=== PATIENT | female | born 1940 | race Caucasian/White ===

== ENCOUNTER 2017-02-06 09:27 | Emergency (ER) | payer OTHER, BC ==
[~2017-02-06] VITALS: Ht 152.4 cm; Wt 45.0 kg
[2017-02-06 10:57] LABS: INTER. NORMALIZED RATIO 2.2; PROTHROMBIN TIME 23.4 (9.2-11.2); PTT 34.4 (25-32)
[2017-02-06 12:07] VITALS: BP 119/67
[2017-02-07] MEDS ORDERED: ALPRAZOLAM0.25 M2 PO (01:51)
[2017-02-07] MEDS ORDERED: LISINOPRIL20 MG PO (01:51)
[2017-02-07] MEDS ORDERED: CARTIA XT180 MG PO (01:51)
[2017-02-07] MEDS ORDERED: SYNTHROID75 MCG PO (01:51)
[2017-02-07] MEDS ORDERED: AMIODARONE HCL200 MG PO (01:51)
[2017-02-07] MEDS ORDERED: ERGOCALCIF50000 UNIT PO (01:51)
[2017-02-07] MEDS ORDERED: CLOPIDOGREL75 MG PO (01:52)
[2017-02-07] MEDS ORDERED: CARAFATE1 GM PO (01:52)
[2017-02-07] MEDS ORDERED: WARFARIN SODIUM2 MG PO ×2 (01:52)
[2017-02-07] MEDS ORDERED: SIMVASTATIN20 MG PO (01:52)
[2017-02-07] MEDS ORDERED: ADVIL200 MG PO (01:53)
[2017-02-07] MEDS ORDERED: LO-DOSE ASPIRIN81 M2 PO (01:53)
[2017-02-07] MEDS ORDERED: CENTRUM SILVER1 EAC3 PO (01:53)
== END 2017-02-06 12:15 | disposition home or self-care (01) ==
LOC: EME 09:27
PROC: 0HQ1XZZ Repair Face Skin, External Approach (ICD-10-PCS; principal; 2017-02-06)
DX: S01.112A Laceration without foreign body of left eyelid and periocular area, initial encounter (principal); Z79.01 Long term (current) use of anticoagulants; W18.12XA Fall from or off toilet with subsequent striking against object, initial encounter; I48.91 Unspecified atrial fibrillation; F17.200 Nicotine dependence, unspecified, uncomplicated
CPT/HCPCS: 70450; 85610; 85730; 99281; 99284

== ENCOUNTER 2017-02-06 23:42 | Observation (INO) | payer OTHER, BC ==
[~2017-02-06] VITALS: Ht 152.4 cm; Wt 45.8 kg
[2017-02-07] VITALS (11 sets, daily range): BP systolic 112–187; BP diastolic 57–77
[2017-02-07 01:24] LABS: EOSINOPHIL COUNT 0.1 K/uL (0-0.3); HEMATOCRIT 23.4 % (36.0-46.0); IMMATURE GRANULOCYTE (%) 0.4 % (0.0-0.7); INSTRUMENT ABS NEUTROPHIL CT 7.5 K/uL; LYMPHOCYTE COUNT 1.5 K/uL (1.0-2.8); MCH 19.2 PG (29.0-34.0); MCHC 28.2 G/DL (30.0-36.0); MONOCYTE (%) 8.5 % (3-12); MONOCYTE COUNT 0.9 K/uL (0-0.8); NEUTROPHIL (%) 75.4 % (45-76); NEUTROPHIL COUNT 7.5 K/uL (1.8-6.4); PLATELET COUNT 333 K/uL (156-360); RBC DIS.WIDTH-CV 17.7 % (11.8-14.6); RBC DIS.WIDTH-SD 43.1 % (39-53); RED BLOOD COUNT 3.44 M/uL (3.80-5.20)
[2017-02-07 01:27] LABS: INTER. NORMALIZED RATIO 2.2; PROTHROMBIN TIME 22.5 (9.2-11.2); PTT 30.2 (25-32)
[2017-02-07 01:29] LABS: CHLORIDE 108 mEq/L (99-109); POTASSIUM 3.7 mEq/L (3.7-5.4); SODIUM 139 mEq/L (136-147)
[2017-02-07 01:31] LABS: GLUCOSE 105 mg/dL (70-99)
[2017-02-07 01:32] LABS: ANION GAP 10 MEQ/L (2-14)
[2017-02-07 01:34] LABS: GFR ESTIMATE (CALCULATED) 51 mL/min/
[2017-02-07 01:35] LABS: UREA NITROGEN (BUN) 16 mg/dL (9-23)
[2017-02-07] MEDS ORDERED: ERGOCALCIF50000 UNIT PO (01:51)
[2017-02-07] MEDS ORDERED: LISINOPRIL20 MG PO (01:51)
[2017-02-07] MEDS ORDERED: AMIODARONE HCL200 MG PO (01:51)
[2017-02-07] MEDS ORDERED: CARTIA XT180 MG PO (01:51)
[2017-02-07] MEDS ORDERED: SYNTHROID75 MCG PO (01:51)
[2017-02-07] MEDS ORDERED: ALPRAZOLAM0.25 M2 PO (01:51)
[2017-02-07] MEDS ORDERED: SIMVASTATIN20 MG PO (01:52)
[2017-02-07] MEDS ORDERED: CARAFATE1 GM PO (01:52)
[2017-02-07] MEDS ORDERED: CLOPIDOGREL75 MG PO (01:52)
[2017-02-07] MEDS ORDERED: WARFARIN SODIUM2 MG PO ×2 (01:52)
[2017-02-07] MEDS ORDERED: CENTRUM SILVER1 EAC3 PO (01:53)
[2017-02-07] MEDS ORDERED: LO-DOSE ASPIRIN81 M2 PO (01:53)
[2017-02-07] MEDS ORDERED: ADVIL200 MG PO (01:53)
[2017-02-07 09:03] LABS: HEMATOCRIT 33.6 % (36.0-46.0)
[2017-02-07 09:13] LABS: MCV 72.9 FL (83-99)
[2017-02-07 09:19] LABS: ALKALINE PHOSPHATASE 114 IU/L (3-129); ANION GAP 8 MEQ/L (2-14); CHLORIDE 106 MEQ/L (99-109); GFR ESTIMATE (CALCULATED) 57 mL/min/; GLUCOSE 94 mg/dL (70-99); POTASSIUM 3.8 MEQ/L (3.7-5.4); SAMPLE HEMOLYSIS CHECK 0; SAMPLE ICTERIC CHECK 0; SAMPLE LIPEMIA CHECK 0; SODIUM 139 MEQ/L (136-147); UREA NITROGEN (BUN) 15 mg/dL (9-23)
== END 2017-02-07 11:12 | disposition home or self-care (01) ==
LOC: EME 23:42 → EDOF 02-07 03:04 → 5WEST 02-07 03:55
PROVIDERS: Emergency Medicine; Internal Medicine; Nurse Practitioner Family
DX: D62 Acute posthemorrhagic anemia (principal); S01.112A Laceration without foreign body of left eyelid and periocular area, initial encounter; Z91.81 History of falling; R19.7 Diarrhea, unspecified; I48.2 Chronic atrial fibrillation; Z79.01 Long term (current) use of anticoagulants
CPT/HCPCS: 80048; 80053; 85014; 85018; 85025; 85610; 85730; 86900; 86901; 86920; 99281; 99285; G0378; J1940; P9016

== ENCOUNTER 2017-07-23 20:02 | Inpatient (IN) | payer OTHER, BC ==
[~2017-07-23] VITALS: Ht 149.9 cm; Wt 48.7 kg
[~2017-07-23 20:02] MED LIST: ADVIL200 MG PO; ALPRAZOLAM0.25 M2 PO; AMIODARONE HCL200 MG PO; CARAFATE1 GM PO; CARTIA XT180 MG PO; CENTRUM SILVER1 EAC3 PO; CLOPIDOGREL75 MG PO; ERGOCALCIF50000 UNIT PO; LISINOPRIL20 MG PO; LO-DOSE ASPIRIN81 M2 PO; SIMVASTATIN20 MG PO; SYNTHROID75 MCG PO; WARFARIN SODIUM2 MG PO
[2017-07-23 22:05] LABS: MCH 28.8 PG (29.0-34.0); MCHC 32.6 G/DL (30.0-36.0); MCV 88.5 FL (83-99); MEAN PLAT.VOLUME 9.8 uM^3 (9.5-12.4); PLATELET COUNT 314 K/uL (156-360); RBC DIS.WIDTH-CV 13.7 % (11.8-14.6); RBC DIS.WIDTH-SD 44.4 % (39-53); RED BLOOD COUNT 4.86 M/uL (3.80-5.20); WHITE BLOOD COUNT 21.1 K/uL (4.1-10.2)
[2017-07-23 22:09] LABS: C DIFF TOXIN NEGATIVE (NEGATIVE)
[2017-07-23 22:11] LABS: CHLORIDE 111 mEq/L (99-109); POTASSIUM 4.1 mEq/L (3.7-5.4); SODIUM 141 mEq/L (136-147)
[2017-07-23 22:13] LABS: GLUCOSE 163 mg/dL (70-99)
[2017-07-23 22:14] LABS: ANION GAP 11 MEQ/L (2-14)
[2017-07-23 22:15] LABS: TOTAL BILIRUBIN 0.5 mg/dL (0.0-1.0)
[2017-07-23 22:16] LABS: ALKALINE PHOSPHATASE 175 IU/L (3-129)
[2017-07-23 22:17] LABS: GFR ESTIMATE (CALCULATED) 42 mL/min/
[2017-07-23 22:17] LABS: PROBE CHECK PASS; SPECIMEN PROCESSING CONTROL PASS
[2017-07-23 22:18] LABS: UREA NITROGEN (BUN) 17 mg/dL (9-23)
[2017-07-23 22:20] LABS: CREATINE KINASE 97 IU/L (1-294); LIPASE 58 U/L (1.0-51.0); TROP-I INTERPRETATION NEGATIVE; TROPONIN-I < 0.01 ng/mL (0.0-0.30)
[2017-07-23] MEDS ORDERED: TYLENOL ARTHRI650 MG PO (23:05)
[2017-07-23] MEDS ORDERED: ALENDRONATE SOD70 MG PO (23:05)
[2017-07-23] MEDS ORDERED: SPIRIVA RESPIMAT4 GM IH (23:05)
[2017-07-24 02:15] VITALS: BP 119/57
[2017-07-24 02:19] LABS: INTERNAL CONTROL VALID? YES
[2017-07-24 03:28] LABS: INTER. NORMALIZED RATIO 2.7; PROTHROMBIN TIME 30.8 SEC (10.2-12.9)
[2017-07-24 03:35] LABS: ADD MIUA? YES; BILIRUBIN NEGATIVE; BLOOD MODERATE; COLOR YELLOW ((YELLOW)); GLUCOSE (STRIP) NEGATIVE; KETONES NEGATIVE; LEUKOCYTES SMALL; NITRITE NEGATIVE; PROTEIN (STRIP) 30; SPECIFIC GRAVITY 1.009 (1.000-1.030); UROBILINOGEN 0.2 MG/DL (0.2-1.0)
[2017-07-24 04:10] LABS: EPITHELIAL CELLS 1+ /HPF; RED BLOOD CELLS 15-20 /HPF (0-5)
[2017-07-24 04:11] LABS: BACTERIA 2+ /HPF; CASTS PRESENT /LPF; COARSE GRANULAR CASTS 0-5 /LPF; CRYSTALS NONE SEEN; MUCUS RARE /LPF; UCUL ADDED? YES
[2017-07-24 07:38] LABS: TROP-I INTERPRETATION NEGATIVE; TROPONIN-I < 0.01 ng/mL (0.0-0.30)
[2017-07-24 07:53] VITALS: BP 117/53
[2017-07-24 09:37] LABS: MCH 28.7 PG (29.0-34.0); MCHC 30.9 G/DL (30.0-36.0); MCV 92.8 FL (83-99); MEAN PLAT.VOLUME 10.3 uM^3 (9.5-12.4); PLATELET COUNT 220 K/uL (156-360); RBC DIS.WIDTH-CV 13.9 % (11.8-14.6); RBC DIS.WIDTH-SD 46.8 % (39-53); RED BLOOD COUNT 3.45 M/uL (3.80-5.20); WHITE BLOOD COUNT 11.6 K/uL (4.1-10.2)
[2017-07-24 11:41] VITALS: BP 105/53
[2017-07-24 12:34] LABS: TROP-I INTERPRETATION NEGATIVE; TROPONIN-I < 0.01 ng/mL (0.0-0.30)
[2017-07-24 12:37] LABS: IRON 35 MCG/DL (35-150)
[2017-07-24 12:55] LABS: FERRITIN 45 NG/ML (10-291)
[2017-07-24 16:00] VITALS: BP 131/48
[2017-07-24 19:48] LABS: HEMATOCRIT 30.7 % (36.0-46.0); MCHC 31.6 G/DL (30.0-36.0); MCV 91.6 FL (83-99); MEAN PLAT.VOLUME 9.9 uM^3 (9.5-12.4); PLATELET COUNT 211 K/uL (156-360); RBC DIS.WIDTH-CV 14.2 % (11.8-14.6); RBC DIS.WIDTH-SD 48.4 % (39-53); RED BLOOD COUNT 3.35 M/uL (3.80-5.20); WHITE BLOOD COUNT 9.4 K/uL (4.1-10.2)
[2017-07-24 20:00] VITALS: BP 128/61
[2017-07-24 23:53] VITALS: BP 152/68
[2017-07-25 04:05] VITALS: BP 133/63
[2017-07-25 05:50] LABS: BASOPHIL COUNT 0.1 K/uL (0-0.1); EOSINOPHIL (%) 2.5 % (0-5); EOSINOPHIL COUNT 0.2 K/uL (0-0.3); HEMATOCRIT 28.6 % (36.0-46.0); IMMATURE GRANULOCYTE (%) 0.4 % (0.0-0.7); LYMPHOCYTE COUNT 1.3 K/uL (1.0-2.8); MCH 28.8 PG (29.0-34.0); MCHC 31.5 G/DL (30.0-36.0); MCV 91.7 FL (83-99); MONOCYTE COUNT 0.9 K/uL (0-0.8); NEUTROPHIL (%) 70.8 % (45-76); PLATELET COUNT 176 K/uL (156-360); RBC DIS.WIDTH-CV 14.2 % (11.8-14.6); RBC DIS.WIDTH-SD 47.7 % (39-53); RED BLOOD COUNT 3.12 M/uL (3.80-5.20); WHITE BLOOD COUNT 8.5 K/uL (4.1-10.2)
[2017-07-25 06:02] LABS: INTER. NORMALIZED RATIO 2.7; PROTHROMBIN TIME 30.6 SEC (10.2-12.9)
[2017-07-25 06:26] LABS: ANION GAP 8 MEQ/L (2-14); CHLORIDE 117 MEQ/L (99-109); GFR ESTIMATE (CALCULATED) > 59 mL/min/; POTASSIUM 3.4 MEQ/L (3.7-5.4); SAMPLE HEMOLYSIS CHECK 0; SAMPLE ICTERIC CHECK 0; SAMPLE LIPEMIA CHECK 0; SODIUM 143 MEQ/L (136-147); UREA NITROGEN (BUN) 10 mg/dL (9-23)
[2017-07-25 06:31] LABS: GLUCOSE 91 mg/dL (70-99)
[2017-07-25 07:22] VITALS: BP 155/54
[2017-07-25 12:14] VITALS: BP 145/53
[2017-07-25 14:35] LABS: MCV 90.9 FL (83-99)
[2017-07-25 15:56] VITALS: BP 132/88
[2017-07-25 19:55] VITALS: BP 117/69
[2017-07-25 23:45] VITALS: BP 137/67
[2017-07-26] VITALS (7 sets, daily range): BP systolic 119–142; BP diastolic 53–66
[2017-07-26 07:41] LABS: INTER. NORMALIZED RATIO 2.5; PROTHROMBIN TIME 28.3 SEC (10.2-12.9)
[2017-07-26 07:45] LABS: HEMATOCRIT 33.7 % (36.0-46.0); MCH 29.2 PG (29.0-34.0); MCHC 32.3 G/DL (30.0-36.0); MCV 90.3 FL (83-99); PLATELET COUNT 171 K/uL (156-360); RBC DIS.WIDTH-CV 14.1 % (11.8-14.6); RBC DIS.WIDTH-SD 46.7 % (39-53); RED BLOOD COUNT 3.73 M/uL (3.80-5.20); WHITE BLOOD COUNT 8.1 K/uL (4.1-10.2)
[2017-07-26 08:07] LABS: ANION GAP 7 MEQ/L (2-14); CHLORIDE 114 MEQ/L (99-109); GFR ESTIMATE (CALCULATED) > 59 mL/min/; GLUCOSE 85 mg/dL (70-99); POTASSIUM 3.4 MEQ/L (3.7-5.4); SAMPLE HEMOLYSIS CHECK 0; SAMPLE ICTERIC CHECK 0; SAMPLE LIPEMIA CHECK 0; SODIUM 142 MEQ/L (136-147); UREA NITROGEN (BUN) 6 mg/dL (9-23)
[2017-07-26] MEDS ORDERED: FERROUS SULFAT325 MG PO (09:34)
[2017-07-26] MEDS ORDERED: METRONIDAZOLE500 MG PO (09:34)
[2017-07-26] MEDS ORDERED: TAMSULOSIN HCL0.4 MG PO (09:34)
[2017-07-26] MEDS ORDERED: CIPRO500 MG PO (09:35)
[2017-07-26] MEDS ORDERED: PANTOPRAZOLE SO40 MG PO (09:35)
== END 2017-07-26 18:03 | disposition home health service (06) | DRG 641 ==
LOC: EME → EDBD 20:02 → EME 20:02 → EDOF 07-24 00:28 → ENRESERV 07-24 00:36 → 5SOUTH 07-24 01:58
PROVIDERS: Hospitalist; Nurse Practitioner Adult Health; Physician Assistant; Specialist
DX: E86.0 Dehydration (principal); R65.10 Systemic inflammatory response syndrome (SIRS) of non-infectious origin without acute organ dysfunction; K52.9 Noninfective gastroenteritis and colitis, unspecified; E87.2 Acidosis; F17.210 Nicotine dependence, cigarettes, uncomplicated; R31.29 Other microscopic hematuria; I73.9 Peripheral vascular disease, unspecified; I71.4 Abdominal aortic aneurysm, without rupture; I48.2 Chronic atrial fibrillation; I10 Essential (primary) hypertension; F41.9 Anxiety disorder, unspecified; E78.5 Hyperlipidemia, unspecified; E61.1 Iron deficiency; E03.9 Hypothyroidism, unspecified; D64.9 Anemia, unspecified; K59.00 Constipation, unspecified; I95.9 Hypotension, unspecified; R33.9 Retention of urine, unspecified; Z95.0 Presence of cardiac pacemaker; Z90.710 Acquired absence of both cervix and uterus; Z79.82 Long term (current) use of aspirin; Z79.01 Long term (current) use of anticoagulants; Z90.49 Acquired absence of other specified parts of digestive tract
CPT/HCPCS: 70450; 74176; 80048; 80053; 81003; 82272; 82550; 82607; 82728; 82746; 83540; 83605; 83690; 84466; 84484; 85014; 85018; 85025; 85027; 85610; 86850; 86870; 86900; 86901; 86920; 87040; 87086; 87177; 87329; 87493; 87506; 93005; 94640; 94640 76; 99281; 99285; C9113; J0744; J1956; J2405; J7030; J7040; P9016; S0028; S0030

== ENCOUNTER 2017-11-13 20:54 | Inpatient (IN) | payer OTHER, BC ==
[~2017-11-13] VITALS: Ht 149.9 cm; Wt 45.8 kg
[~2017-11-13 20:54] MED LIST changes: +ALENDRONATE SOD70 MG PO; +CIPRO500 MG PO; +FERROUS SULFAT325 MG PO; +METRONIDAZOLE500 MG PO; +PANTOPRAZOLE SO40 MG PO; +SPIRIVA RESPIMAT4 GM IH; +TAMSULOSIN HCL0.4 MG PO; +TYLENOL ARTHRI650 MG PO
[2017-11-13 22:08] LABS: HEMATOCRIT 34.4 % (36.0-46.0); HEMOGLOBIN 11.3 G/DL (11.9-15.5); MCH 29.8 PG (29.0-34.0); MCHC 32.8 G/DL (30.0-36.0); MCV 90.8 FL (83-99); PLATELET COUNT 242 K/uL (156-360); RBC DIS.WIDTH-CV 12.9 % (11.8-14.6); RBC DIS.WIDTH-SD 42.8 % (39-53); RED BLOOD COUNT 3.79 M/uL (3.80-5.20); WHITE BLOOD COUNT 12.3 K/uL (4.1-10.2)
[2017-11-13 22:17] LABS: INTER. NORMALIZED RATIO 1.6
[2017-11-13 22:20] LABS: PTT 26.8 SEC (25-37)
[2017-11-13 22:24] LABS: ALBUMIN 3.4 g/dL (3.2-4.8)
[2017-11-13 22:25] LABS: CHLORIDE 113 mEq/L (99-109); POTASSIUM 5.1 mEq/L (3.7-5.4); SODIUM 143 mEq/L (136-147)
[2017-11-13 22:27] LABS: GLUCOSE 108 mg/dL (70-99); TOTAL PROTEIN 5.3 g/dL (6.4-8.3)
[2017-11-13 22:29] LABS: TOTAL BILIRUBIN 0.3 mg/dL (0.0-1.0)
[2017-11-13 22:30] LABS: ALKALINE PHOSPHATASE 77 IU/L (3-129)
[2017-11-13 22:31] LABS: CREATININE 0.8 mg/dL (0.6-1.3); GFR ESTIMATE (CALCULATED) > 59 mL/min/
[2017-11-13 22:32] LABS: AST (GOT) 15 IU/L (2-34); UREA NITROGEN (BUN) 23 mg/dL (9-23)
[2017-11-13 22:34] LABS: ALT (GPT) 12 IU/L (3-49)
[2017-11-13] MEDS ORDERED: IRON325 M1 PO (23:07)
[2017-11-13] MEDS ORDERED: COUMADIN2 MG PO (23:08)
[2017-11-13] MEDS ORDERED: PROTONIX40 MG PO (23:09)
[2017-11-14] VITALS (25 sets, daily range): BP systolic 78–152; BP diastolic 34–95
[2017-11-14 00:54] LABS: HEMATOCRIT 32.2 % (36.0-46.0); HEMOGLOBIN 10.7 G/DL (11.9-15.5); MCV 89.9 FL (83-99)
[2017-11-14 04:50] LABS: STOOL OCCULT BLD 1ST SPECIMEN POSITIVE
[2017-11-14 06:17] LABS: INTER. NORMALIZED RATIO 1.6
[2017-11-14 06:53] LABS: ALBUMIN 2.9 G/DL (3.2-4.8); ALKALINE PHOSPHATASE 59 IU/L (3-129); ALT (GPT) 10 IU/L (3-49); AST (GOT) 12 IU/L (2-34); CHLORIDE 115 MEQ/L (99-109); CREATININE 0.8 MG/DL (0.6-1.3); GFR ESTIMATE (CALCULATED) > 59 mL/min/; GLUCOSE 101 mg/dL (70-99); POTASSIUM 4.4 MEQ/L (3.7-5.4); SODIUM 143 MEQ/L (136-147); TOTAL BILIRUBIN 0.3 MG/DL (0.0-1.0); TOTAL PROTEIN 4.7 G/DL (6.4-8.3); UREA NITROGEN (BUN) 24 mg/dL (9-23)
[2017-11-14 07:16] LABS: HEMATOCRIT 28.7 % (36.0-46.0); HEMOGLOBIN 9.3 G/DL (11.9-15.5); MCH 29.8 PG (29.0-34.0); MCHC 32.4 G/DL (30.0-36.0); PLATELET COUNT 244 K/uL (156-360); RBC DIS.WIDTH-CV 13.2 % (11.8-14.6); RBC DIS.WIDTH-SD 43.9 % (39-53); RED BLOOD COUNT 3.12 M/uL (3.80-5.20); WHITE BLOOD COUNT 10.1 K/uL (4.1-10.2)
[2017-11-14 13:07] LABS: INTER. NORMALIZED RATIO 1.3
[2017-11-14 13:29] LABS: HEMATOCRIT 19.8 % (36.0-46.0); HEMOGLOBIN 6.5 G/DL (11.9-15.5); MCV 92.1 FL (83-99)
[2017-11-14 19:27] LABS: HEMOGLOBIN 7.4 G/DL (11.9-15.5); MCV 92.1 FL (83-99)
[2017-11-14 23:12] LABS: BASOPHIL (%) 0.4 % (0-1); EOSINOPHIL (%) 0.3 % (0-5); HEMATOCRIT 26.4 % (36.0-46.0); HEMOGLOBIN 9.1 G/DL (11.9-15.5); IMMATURE GRANULOCYTE (%) 0.8 % (0.0-0.7); LYMPHOCYTE (%) 19.7 % (15-42); LYMPHOCYTE COUNT 2.1 K/uL (1.0-2.8); MCH 30.8 PG (29.0-34.0); MCHC 34.5 G/DL (30.0-36.0); MCV 89.5 FL (83-99); MONOCYTE (%) 9.3 % (3-12); NEUTROPHIL (%) 69.5 % (45-76); NEUTROPHIL COUNT 7.3 K/uL (1.8-6.4); PLATELET COUNT 174 K/uL (156-360); RBC DIS.WIDTH-CV 13.7 % (11.8-14.6); RBC DIS.WIDTH-SD 44.3 % (39-53); RED BLOOD COUNT 2.95 M/uL (3.80-5.20); WHITE BLOOD COUNT 10.5 K/uL (4.1-10.2)
[2017-11-15] VITALS (30 sets, daily range): BP systolic 87–178; BP diastolic 25–90
[2017-11-15 06:10] LABS: BASOPHIL (%) 0.4 % (0-1); EOSINOPHIL (%) 1.4 % (0-5); EOSINOPHIL COUNT 0.1 K/uL (0-0.3); HEMATOCRIT 22.6 % (36.0-46.0); HEMOGLOBIN 7.5 G/DL (11.9-15.5); IMMATURE GRANULOCYTE (%) 0.3 % (0.0-0.7); LYMPHOCYTE (%) 28.8 % (15-42); LYMPHOCYTE COUNT 2.6 K/uL (1.0-2.8); MCHC 33.2 G/DL (30.0-36.0); MCV 90.4 FL (83-99); MONOCYTE (%) 10.3 % (3-12); MONOCYTE COUNT 0.9 K/uL (0-0.8); NEUTROPHIL (%) 58.8 % (45-76); NEUTROPHIL COUNT 5.3 K/uL (1.8-6.4); PLATELET COUNT 153 K/uL (156-360); RBC DIS.WIDTH-CV 14.2 % (11.8-14.6); RBC DIS.WIDTH-SD 46.6 % (39-53)
[2017-11-15 06:23] LABS: INTER. NORMALIZED RATIO 1.1
[2017-11-15 06:33] LABS: ALBUMIN 2.4 G/DL (3.2-4.8); CHLORIDE 118 MEQ/L (99-109); CREATININE 0.7 MG/DL (0.6-1.3); GFR ESTIMATE (CALCULATED) > 59 mL/min/; GLUCOSE 84 mg/dL (70-99); PHOSPHORUS 2.8 mg/dL (2.5-4.9); POTASSIUM 3.8 MEQ/L (3.7-5.4); SODIUM 146 MEQ/L (136-147); UREA NITROGEN (BUN) 19 mg/dL (9-23)
[2017-11-15 12:01] LABS: HEMATOCRIT 29.7 % (36.0-46.0); MCV 89.2 FL (83-99)
[2017-11-15 18:00] LABS: HEMATOCRIT 27.1 % (36.0-46.0); HEMOGLOBIN 9.2 G/DL (11.9-15.5); MCV 89.1 FL (83-99)
[2017-11-16] VITALS (20 sets, daily range): BP systolic 121–191; BP diastolic 42–96
[2017-11-16 00:29] LABS: HEMATOCRIT 24.6 % (36.0-46.0); HEMOGLOBIN 8.5 G/DL (11.9-15.5); MCV 88.8 FL (83-99)
[2017-11-16 06:00] LABS: BASOPHIL (%) 0.6 % (0-1); BASOPHIL COUNT 0.1 K/uL (0-0.1); EOSINOPHIL (%) 3.7 % (0-5); EOSINOPHIL COUNT 0.3 K/uL (0-0.3); HEMOGLOBIN 8.7 G/DL (11.9-15.5); IMMATURE GRANULOCYTE (%) 0.7 % (0.0-0.7); LYMPHOCYTE (%) 18.1 % (15-42); LYMPHOCYTE COUNT 1.6 K/uL (1.0-2.8); MCH 29.8 PG (29.0-34.0); MCHC 33.5 G/DL (30.0-36.0); MONOCYTE (%) 9.4 % (3-12); MONOCYTE COUNT 0.8 K/uL (0-0.8); NEUTROPHIL (%) 67.5 % (45-76); PLATELET COUNT 145 K/uL (156-360); RBC DIS.WIDTH-CV 14.6 % (11.8-14.6); RBC DIS.WIDTH-SD 47.4 % (39-53); RED BLOOD COUNT 2.92 M/uL (3.80-5.20); WHITE BLOOD COUNT 8.9 K/uL (4.1-10.2)
[2017-11-16 06:25] LABS: CHLORIDE 117 MEQ/L (99-109); CREATININE 0.6 MG/DL (0.6-1.3); GFR ESTIMATE (CALCULATED) > 59 mL/min/; GLUCOSE 79 mg/dL (70-99); MAGNESIUM 2.1 mg/dl (1.3-2.7); POTASSIUM 3.5 MEQ/L (3.7-5.4); SODIUM 145 MEQ/L (136-147); UREA NITROGEN (BUN) 9 mg/dL (9-23)
[2017-11-16 06:27] LABS: PHOSPHORUS 1.8 mg/dL (2.5-4.9)
[2017-11-16 13:01] LABS: HEMATOCRIT 26.8 % (36.0-46.0); HEMOGLOBIN 8.8 G/DL (11.9-15.5); MCV 89.9 FL (83-99)
[2017-11-17] VITALS (7 sets, daily range): BP systolic 136–188; BP diastolic 51–93
[2017-11-17 05:00] LABS: HEMATOCRIT 25.4 % (36.0-46.0); HEMOGLOBIN 8.9 G/DL (11.9-15.5); MCH 30.8 PG (29.0-34.0); MCV 87.9 FL (83-99); PLATELET COUNT 153 K/uL (156-360); RBC DIS.WIDTH-CV 14.3 % (11.8-14.6); RBC DIS.WIDTH-SD 45.4 % (39-53); RED BLOOD COUNT 2.89 M/uL (3.80-5.20)
[2017-11-17 05:20] LABS: CHLORIDE 115 mEq/L (99-109); POTASSIUM 3.2 mEq/L (3.7-5.4); SODIUM 144 mEq/L (136-147)
[2017-11-17 05:21] LABS: MAGNESIUM 1.8 mg/dL (1.3-2.7)
[2017-11-17 05:24] LABS: GLUCOSE 102 mg/dL (70-99)
[2017-11-17 05:26] LABS: CREATININE 0.7 mg/dL (0.6-1.3); GFR ESTIMATE (CALCULATED) > 59 mL/min/
[2017-11-17 05:27] LABS: UREA NITROGEN (BUN) 7 mg/dL (9-23)
[2017-11-17] MEDS ORDERED: PROTONIX40 MG PO (13:01)
== END 2017-11-17 17:08 | disposition home or self-care (01) | DRG 378 ==
LOC: EME 20:54 → 4WEST 22:32 → EDOF 22:32 → 3EAST 22:32 → EDOF 22:32 → ENRESERV 22:40 → 3EAST 11-14 00:21 → ENRESERV 11-14 14:10 → 3EAST 11-14 16:04 → ENRESERV 11-14 16:11 → 4WEST 11-14 19:05 → ENRESERV 11-16 17:32 → 4SOUTH 11-17 10:18
PROVIDERS: Emergency Medicine; Internal Medicine; Internal Medicine Gastroenterology; Physician Assistant Medical; Specialist
DX: K92.2 Gastrointestinal hemorrhage, unspecified (principal); R64 Cachexia; I48.0 Paroxysmal atrial fibrillation; Z79.01 Long term (current) use of anticoagulants; I10 Essential (primary) hypertension; E78.5 Hyperlipidemia, unspecified; J44.9 Chronic obstructive pulmonary disease, unspecified; R55 Syncope and collapse; E03.9 Hypothyroidism, unspecified; K21.9 Gastro-esophageal reflux disease without esophagitis; F17.200 Nicotine dependence, unspecified, uncomplicated; Z79.02 Long term (current) use of antithrombotics/antiplatelets; Z95.0 Presence of cardiac pacemaker; K29.70 Gastritis, unspecified, without bleeding; K57.30 Diverticulosis of large intestine without perforation or abscess without bleeding; K64.8 Other hemorrhoids; D64.9 Anemia, unspecified; I25.10 Atherosclerotic heart disease of native coronary artery without angina pectoris; I71.4 Abdominal aortic aneurysm, without rupture; Z79.82 Long term (current) use of aspirin
CPT/HCPCS: 80048; 80053; 80069; 82272; 83735; 84100; 85014; 85018; 85025; 85027; 85610; 85730; 86850; 86900; 86901; 86920; 87641; 94640; 94640 76; 99281; 99285; J0360; J7030; J7040; J7050; P9016; P9017